=== PATIENT | female | born 1990 | race Caucasian/White ===

== ENCOUNTER 2022-10-05 17:06 | Emergency (ER) | payer MEDICAID, OTHER ==
[~2022-10-05] VITALS: Ht 162.6 cm; Wt 70.0 kg
[2022-10-05] MEDS ORDERED: CEPH500C PO (18:38)
[2022-10-05 18:41] VITALS: BP 130/97
== END 2022-10-05 18:45 | disposition home or self-care (01) ==
LOC: ER 17:06
DX: J03.90 Acute tonsillitis, unspecified (principal); Z88.0 Allergy status to penicillin; Z88.2 Allergy status to sulfonamides; Z79.899 Other long term (current) drug therapy

== ENCOUNTER 2022-10-15 17:27 | Emergency (ER) | payer MEDICAID ==
[~2022-10-15] VITALS: Ht 162.6 cm; Wt 73.1 kg
[~2022-10-15 17:27] MED LIST: CEPH500C PO
[2022-10-15] MEDS ORDERED: LIDOCAINE VISCOUS 2% 15ML UD PO ONE (20:30)
[2022-10-15] MEDS ORDERED: HYDROcodone-ACET 5/325MG TAB PO ONE (20:30)
[2022-10-15] MEDS ORDERED: DexAMETHasone SOD PHOS 10MG/1ML VIAL INJ IM ONE (20:30)
[2022-10-15] MEDS ORDERED: cefTRIAXone SOD 1,000 MG VL IM ONE (20:30)
[2022-10-15] MEDS ORDERED: CLINDAMYCIN HCL 150 MG CAP PO ONE (20:30)
[2022-10-15] MEDS ORDERED: IBU600T PO (20:32)
[2022-10-15] MEDS ORDERED: LIDO2SOL18 MT (20:32)
[2022-10-15] MEDS ORDERED: CLIN300C70 PO (20:32)
[2022-10-15] MEDS ORDERED: PRED20TA2 PO (20:32)
[2022-10-15] MEDS ORDERED: GENT0.3S10 EACHEYE (20:33)
[2022-10-15 21:53] VITALS: BP 132/78
== END 2022-10-15 21:53 | disposition home or self-care (01) ==
LOC: ER 17:27
DX: J03.90 Acute tonsillitis, unspecified (principal); H10.9 Unspecified conjunctivitis; Z88.1 Allergy status to other antibiotic agents; Z88.2 Allergy status to sulfonamides
CPT/HCPCS: 96372; 99284; J1100